=== PATIENT | female | born 1990 | race Two or more races ===

== ENCOUNTER 2017-10-13 10:22 | Outpatient (CLI) | payer OTHER | END 2017-10-13 10:29 | disposition home or self-care (01) | LOC: RX STUDY 10:22 | DX: N97.1 Female infertility of tubal origin (principal) ==

== ENCOUNTER 2023-01-19 21:25 | Emergency (ER) | payer OTHER ==
[~2023-01-19] VITALS: Ht 160 cm; Wt 63.5 kg
[2023-01-19] MEDS ORDERED: DICLOFENAC SODI75 MG PO (21:56)
[2023-01-19] MEDS ORDERED: NORFLEX100MG PO (21:56)
== END 2023-01-19 22:13 | disposition home or self-care (01) ==
LOC: ER 21:25
DX: M43.6 Torticollis (principal)

== ENCOUNTER 2023-11-06 10:04 | Emergency (ER) | payer OTHER ==
[~2023-11-06] VITALS: Ht 160 cm; Wt 65.8 kg
[~2023-11-06 10:04] MED LIST: DICLOFENAC SODI75 MG PO; NORFLEX100MG PO
[2023-11-06 12:03] LABS: PH,URINE 5.5 (5.0-8.0); URINE APPEARANCE Clear; URINE BILIRRUBIN Negative (NEGATIVE); URINE BLOOD Small; URINE COLOR Yellow; URINE GLUCOSE Negative (NEGATIVE); URINE LEUKOCYTE Trace; URINE NITRATE Negative; URINE PROTEIN Negative (NEGATIVE)
[2023-11-06 12:04] LABS: HEMATOCRIT 39.7 % (36.0-45.00); HEMOGLOBIN 13.4 g/dL (12.0-15.00); MEAN CORPUSCULAR HEMOGLOBIN 30.3 pg (27.00-32.0); MEAN CORPUSCULAR HGB CONC 33.7 g/dl (32.0-36.0); PLATELET COUNT 295 K/uL (150-450); RED BLOOD COUNT 4.41 M/uL (4.00-6.00); RED CELL DISTRIBUTION WIDTH 13.1 % (11.5-14.5)
[2023-11-06 12:06] LABS: URINE BACTERIA 2011.9 uL (0.0-1933); URINE EPITHELIAL CELLS 18.7 uL (0.0-38.8); URINE RBC 17.5 uL (0.0-20.8); URINE WBC 27.8 uL (0.0-23.2)
== END 2023-11-06 16:10 | disposition home or self-care (01) ==
LOC: ER 10:06
DX: N39.0 Urinary tract infection, site not specified (principal)

== ENCOUNTER 2024-10-13 09:45 | Outpatient (CLI) | payer OTHER ==
[2024-10-13 10:53] LABS: URINE APPEARANCE Clear; URINE BILIRRUBIN Negative (NEGATIVE); URINE BLOOD Negative; URINE COLOR Yellow; URINE GLUCOSE Negative (NEGATIVE); URINE KETONE Negative (NEGATIVE); URINE LEUKOCYTE Negative; URINE NITRATE Negative; URINE PROTEIN Negative (NEGATIVE); URINE UROBILINOGEN 0.2 E.U./dl
[2024-10-13 10:58] LABS: URINE BACTERIA 2173.4 uL (0.0-1933); URINE EPITHELIAL CELLS 34.4 uL (0.0-38.8); URINE RBC 34.9 uL (0.0-20.8)
[2024-10-13 11:18] LABS: HEMATOCRIT 38.1 % (36.0-45.00); HEMOGLOBIN 13.1 g/dL (12.0-15.00); MEAN CORPUSCULAR HEMOGLOBIN 30.8 pg (27.00-32.0); MEAN CORPUSCULAR HGB CONC 34.3 g/dl (32.0-36.0); PLATELET COUNT 281 K/uL (150-450); RED BLOOD COUNT 4.24 M/uL (4.00-6.00); RED CELL DISTRIBUTION WIDTH 13.1 % (11.5-14.5)
[2024-10-13 12:17] LABS: ALBUMIN 3.8 gm/dL (3.4-5.0); BILIRUBIN TOTAL 0.65 mg/dL (0.3-1.2); CALCIUM 8.9 mg/dL (8.5-10.1); CHOL HDL RATIO 3.2 (0-5.0); CREATININE SERUM 0.77 mg/dL (0.55-1.02); GFR 87.43; GLOBULINA 3.4 G/DL (2.4-3.5); POTASSIUM 3.77 mEq/L (3.5-5.1); T4 TOTAL 10.54 UG/DL (4.8-13.9); TOTAL PROTEIN 7.2 gm/dL (6.4-8.2); TSH 1.52 uIU/mL (0.358-3.74)
[2024-10-16 12:45] LABS: VITAMIN D3 25 HYDROXY 30.96 ng/ml (30-120)
[2024-10-16 15:45] LABS: RAPID PLASMA REAGIN NONREACTIVE BY RPR (NONREACTIVE)
[2024-10-17 09:48] LABS: hav igm Negative (Negative); hcv Non Reactive (Non Reactive); hep b c Negative (Negative); hep b s ag Negative (Negative)
[2024-10-17 10:04] LABS: FOLLICLE STIMULATING HORMONE 5.2 mIU/mL (.); LEUTEINIZING HORMONE 33.3 mIU/mL (.)
== END 2024-10-13 09:51 | disposition home or self-care (01) ==
LOC: LAB 09:45
PROVIDERS: ATTEND Obstetrics & Gynecology
DX: E03.9 Hypothyroidism, unspecified (principal); E16.2 Hypoglycemia, unspecified; N39.0 Urinary tract infection, site not specified; E78.2 Mixed hyperlipidemia; E56.9 Vitamin deficiency, unspecified; E55.9 Vitamin D deficiency, unspecified; R97.1 Elevated cancer antigen 125 [CA 125]; R53.1 Weakness; E66.01 Morbid (severe) obesity due to excess calories; D68.9 Coagulation defect, unspecified; N95.1 Menopausal and female climacteric states; R68.82 Decreased libido

== ENCOUNTER 2025-02-16 07:54 | Outpatient (CLI) | payer OTHER ==
[2025-02-16 09:26] LABS: URINE APPEARANCE Clear; URINE BILIRRUBIN Negative (NEGATIVE); URINE BLOOD Negative; URINE COLOR Yellow; URINE GLUCOSE Negative (NEGATIVE); URINE LEUKOCYTE Negative; URINE NITRATE Negative; URINE PROTEIN Negative (NEGATIVE)
[2025-02-16 09:27] LABS: URINE BACTERIA 121.1 uL (0.0-1933); URINE EPITHELIAL CELLS 11.2 uL (0.0-38.8); URINE WBC 3.4 uL (0.0-23.2)
[2025-02-16 10:05] LABS: BASO % 0.5 % (0.1-1.2); EOS # 0.17 (0.04-0.54); EOS % 2.9 % (0.7-7.0); HEMATOCRIT 37.6 % (34.1-44.9); HEMOGLOBIN 12.8 g/dL (11.2-15.7); LYMPH # 1.76 (1.18-3.74); LYMPH % 29.7 % (19.3-53.1); MEAN CORPUSCULAR HEMOGLOBIN 29.8 pg (25.6-32.2); MONO # 0.39 (0.24-0.82); MONO % 6.6 % (4.7-12.5); NEUT # 3.56 (1.56-6.13); NEUT % 60.1 % (34.0-71.1); PLATELET COUNT 269 K/uL (163-369); RED BLOOD COUNT 4.29 M/uL (3.93-5.22); RED CELL DISTRIBUTION WIDTH 12.7 % (11.6-14.4)
[2025-02-16 10:08] LABS: URINE KETONE 40 (NEGATIVE)
[2025-02-16 10:27] LABS: PARTIAL THROMBOPLASTIN TIME 25.4 SECONDS (22.0-34.0); PROTHROMBIN TIME 10.9 SECONDS (9.0-11.5)
[2025-02-16 11:03] LABS: ALBUMIN 3.9 gm/dL (3.4-5.0); BILIRUBIN TOTAL 0.54 mg/dL (0.3-1.2); CALCIUM 8.8 mg/dL (8.5-10.1); CHOL HDL RATIO 3.3 (0-5.0); CREATININE SERUM 0.64 mg/dL (0.55-1.02); FREE TRIODOTIRONINE 2.53 pg/ml (2.18-3.98); GFR 107.54; GLOBULINA 2.9 G/DL (2.4-3.5); POTASSIUM 4.6 mEq/L (3.5-5.1); T4 FREE 1.18 NG/ML (0.76-1.46); TOTAL PROTEIN 6.8 gm/dL (6.4-8.2); TSH 1.05 uIU/mL (0.358-3.74)
== END 2025-02-16 08:00 | disposition home or self-care (01) ==
LOC: LAB 07:54
PROVIDERS: ATTEND Obstetrics & Gynecology
DX: E16.2 Hypoglycemia, unspecified (principal); N39.0 Urinary tract infection, site not specified; E78.2 Mixed hyperlipidemia; E56.9 Vitamin deficiency, unspecified; E55.9 Vitamin D deficiency, unspecified; E03.9 Hypothyroidism, unspecified; R97.1 Elevated cancer antigen 125 [CA 125]; R53.1 Weakness; E66.01 Morbid (severe) obesity due to excess calories; Z11.3 Encounter for screening for infections with a predominantly sexual mode of transmission; D68.9 Coagulation defect, unspecified

== ENCOUNTER → 2025-02-16 | Outpatient (CLI) | payer OTHER | END | disposition home or self-care (01) | LOC: RAD 08:42 | PROVIDERS: ATTEND Obstetrics & Gynecology | DX: Z01.811 Encounter for preprocedural respiratory examination (principal); Z01.812 Encounter for preprocedural laboratory examination ==

== ENCOUNTER 2025-07-27 07:38 | Outpatient (CLI) | payer OTHER | END 2025-07-27 07:40 | disposition home or self-care (01) | LOC: LAB 07:38 | PROVIDERS: ATTEND Obstetrics & Gynecology Reproductive Endocrinology | DX: R70.0 Elevated erythrocyte sedimentation rate (principal); E28.8 Other ovarian dysfunction ==